=== PATIENT | male | born 1995 | race Caucasian/White ===

== ENCOUNTER 2024-04-08 17:49 | Emergency (ER) | payer BC, MEDICAID ==
[~2024-04-08] VITALS: Ht 167.6 cm; Wt 66.0 kg
[2024-04-08 17:55] VITALS: O2SAT 100
[2024-04-08] MEDS ORDERED: IBUPROFEN 600MG TABLET PO ONE (18:30)
[2024-04-08] MEDS ORDERED: NAPR-681 MT (19:38)
[2024-04-08] MEDS ORDERED: AMOX1TAB16 MT (19:38)
[2024-04-08] MEDS: IBUPROFEN 600MG TABLET PO NR (19:59)
[2024-04-08 20:11] VITALS: BP 116/73; PULSE 90; RESP 20; TEMP 98.3
== END 2024-04-08 19:56 | disposition home or self-care (01) ==
LOC: ER 17:49
DX: L02.91 Cutaneous abscess, unspecified (principal); L03.90 Cellulitis, unspecified
CPT/HCPCS: 72192; 99284